=== PATIENT | male | born 1965 | race Caucasian/White ===

== ENCOUNTER 2017-01-18 10:53 | Inpatient (IN) | payer OTHER, MEDICARE ==
[~2017-01-18] VITALS: Ht 180.3 cm; Wt 104.9 kg
--- NOTE | 2017-01-18 11:18 | PD ---
HPI Chief Complaint: Manuel Act Time Seen by Provider: 11:12 Travel History International Travel<30 days: No (unknown) Contact w/Intl Traveler<30days: No (unknown) History of Present Illness HPI 51yo M with PMH of PTSD was brought in as [place] because he has pressured speech and is manic. Pt states he has homicidal and suicidal ideations. Said he has chronic pain but does not know what he takes. Denies any fever, chest pain, sob, n/v, abdominal pain, focal weakness or numbness. Denies any trauma, fall, IVDA. Said he drinks not every day but every other day. PFSH Social History Tobacco Use: No Allergies-Medications (Allergen,Severity, Reaction): Coded Allergies: lithium (Verified Allergy, Severe, Swelling, 01/18/17) shellfish derived (Verified Allergy, Severe, Anaphylaxis, 01/18/17) quetiapine (Verified Adverse Reaction, Severe, Sedation, 01/18/17) Reported Meds & Prescriptions Reported Meds & Active Scripts Active Reported Hydroxyzine HCl 50 Mg Tab 50 Mg PO BID Epipen 2-Dez Inj (Epinephrine) 0.3 Mg/0.3 Ml Pfpen 0.3 Mg IM ONCE PRN Diphenhydramine (Diphenhydramine HCl) 25 Mg Cap 25 Mg PO BID PRN Buspirone (Buspirone HCl) 5 Mg Tab 5 Mg PO BID Review of Systems Except as stated in HPI: all other systems reviewed are Neg Physical Exam Narrative GENERAL: 51yo M not in distress. SKIN: Focused skin assessment warm/dry. HEAD: Atraumatic. Normocephalic. EYES: Pupils equal and round at 3mm bilaterally. EOMI. No scleral icterus. No injection or drainage. ENT: No nasal bleeding or discharge. Mucous membranes pink and moist. NECK: Trachea midline. No JVD. CARDIOVASCULAR: Regular rate and rhythm. No murmur appreciated. RESPIRATORY: No accessory muscle use. Clear to auscultation. Breath sounds equal bilaterally. BACK: No midline thoracic or lumbar spine ttp. GASTROINTESTINAL: Abdomen soft, non-tender, nondistended. MUSCULOSKELETAL: No obvious deformities. No clubbing. No cyanosis. No edema. NEUROLOGICAL: Awake and alert. No obvious cranial nerve deficits. Motor grossly within normal limits. Sensation equal bilaterally. Normal speech. Data Data Last Documented VS Vital Signs Date Time Temp Pulse Resp B/P (MAP) Pulse Ox O2 Delivery O2 Flow Rate FiO2 01/18/17 22:39 55 17 126/67 (86) 96 Room Air 01/18/17 18:15 98.4 Orders Orders Complete Blood Count With Diff (01/18/17 11:12) Basic Metabolic Panel (Bmp) (01/18/17 11:12) Psych Screen (01/18/17 11:12) Drug Screen, Random Urine (01/18/17 11:12) Alcohol (Ethanol) (01/18/17 11:12) Salicylates (Aspirin) (01/18/17 11:12) Tylenol (Acetaminophen) (01/18/17 11:12) Diet Regular Basic (01/18/17 Lunch) Acetaminophen (Tylenol) (01/18/17 17:45) Ibuprofen (Motrin) (01/18/17 21:00) Lorazepam (Ativan) (01/18/17 23:45) Lorazepam Inj (Ativan Inj) (01/18/17 23:45) Hydroxyzine Hcl (Atarax) (01/18/17 23:45) Diphenhydramine (Benadryl) (01/18/17 23:45) Diphenhydramine (Benadryl) (01/18/17 23:45) Diphenhydramine Inj (Benadryl Inj) (01/18/17 23:45) Trazodone (Desyrel) (01/18/17 23:45) Acetaminophen (Tylenol) (01/18/17 23:45) Magnesium Hydroxide Liq (Milk Of Magnesi (01/18/17 23:45) Al-Mag Hy-Si 40-40-4 Mg/Ml Liq (Mag-Al P (01/18/17 23:45) Nicotine 21 Mg Patch.24 Hr (Habitrol 21 (01/19/17 09:00) Remove Old Patch (01/19/17 21:00) Diphenhydramine Inj (Benadryl Inj) (01/18/17 23:45) Admit Order (Ed Use Only) (01/18/17 23:37) Admit To Inpatient Psych (01/18/17 ) Vital Signs (Adult) [id number].Q12H.E (01/18/17 23:37) Activity Oob Ad Bridgett (01/18/17 23:37) Level Of Observation (Psych) (01/18/17 23:37) Diet Regular Basic (01/19/17 Breakfast) Complete Blood Count With Diff (01/19/17 06:00) Basic Metabolic Panel (Bmp) (01/19/17 06:00) Lipid Profile (01/19/17 06:00) Hemoglobin (Hgb) A1c (01/19/17 06:00) Haloperidol (Haldol) (01/18/17 23:38) Labs Laboratory Tests Test 01/18/17 11:30 01/18/17 12:10 White Blood Count 10.9 TH/MM3 Red Blood Count 4.44 MIL/MM3 Hemoglobin 14.1 GM/DL Hematocrit 40.7 % Mean Corpuscular Volume 91.5 FL Mean Corpuscular Hemoglobin 31.9 PG Mean Corpuscular Hemoglobin Concent 34.8 % Red Cell Distribution Width 12.8 % Platelet Count 210 TH/MM3 Mean Platelet Volume 8.9 FL Neutrophils (%) (Auto) 64.8 % Lymphocytes (%) (Auto) 23.8 % Monocytes (%) (Auto) 9.7 % Eosinophils (%) (Auto) 0.9 % Basophils (%) (Auto) 0.8 % Neutrophils # (Auto) 7.1 TH/MM3 Lymphocytes # (Auto) 2.6 TH/MM3 Monocytes # (Auto) 1.1 TH/MM3 Eosinophils # (Auto) 0.1 TH/MM3 Basophils # (Auto) 0.1 TH/MM3 CBC Comment DIFF FINAL Differential Comment Blood Urea Nitrogen 22 MG/DL Creatinine 1.08 MG/DL Random Glucose 102 MG/DL Calcium Level 9.2 MG/DL Sodium Level 138 MEQ/L Potassium Level 4.0 MEQ/L Chloride Level 104 MEQ/L Carbon Dioxide Level 25.7 MEQ/L Anion Gap 8 MEQ/L Estimat Glomerular Filtration Rate 72 ML/MIN Salicylates Level 1.8 MG/DL Acetaminophen Level LESS THAN 2.0 MCG/ML Ethyl Alcohol Level LESS THAN 3 MG/DL Urine Opiates Screen NEG Urine Barbiturates Screen NEG Urine Amphetamines Screen NEG Urine Benzodiazepines Screen NEG Urine Cocaine Screen NEG Urine Cannabinoids Screen POS MDM Medical Decision Making Medical Screen Exam Complete: Yes Emergency Medical Condition: Yes Differential Diagnosis PTSD vs. bipolar disorder with manic episode vs. drug induced psychosis Narrative Course 51yo M with PTSD and possible bipolar disorder here under manuel act for psychosis. Pt has no signs of trauma and answering questions. He does seem to have some pressure speech but directable and does not need any medication right now. Will obtain labs, UA and psych evaluation. Labs reviewed, no leukocytosis. BMP unremarkable. Salicylate, acetaminophen and alcohol level negative. Urine drug screen is positive for cannabinoids. Pt is medically clear for psych evaluation. Diagnosis Primary Impression: PTSD (post-traumatic stress disorder) Juliet Nolasco DO Jan 18, 2017 11:18
[2017-01-18 11:19] VITALS: BP 152/86; PULSE 88; RESP 20; TEMP 98; O2SAT 100
[2017-01-18] MEDS ORDERED: EPIP0.3I IM (11:28)
[2017-01-18] MEDS ORDERED: BUSP5TAB PO (11:28)
[2017-01-18] MEDS ORDERED: DIPH25CA PO (11:28)
[2017-01-18] MEDS ORDERED: HYDR50TA94 PO (11:28)
[2017-01-18 11:47] LABS: AUTOMATED NEUTROPHIL # 7.1 TH/MM3 (1.8-7.7); BASOPHIL # 0.1 TH/MM3 (0-0.2); BASOPHIL % 0.8 % (0.0-2.0); EOSINOPHIL # 0.1 TH/MM3 (0-0.4); EOSINOPHIL % 0.9 % (0.0-4.0); HEMATOCRIT 40.7 % (39.0-51.0); HEMO FLAGS DIFF FINAL; LYMPH % 23.8 % (9.0-44.0); LYMPHOCYTE # 2.6 TH/MM3 (1.0-4.8); MEAN CELL VOLUME 91.5 FL (80.0-100.0); MEAN CORPUSCULAR HEMOGLOBIN 31.9 PG (27.0-34.0); MEAN CORPUSCULAR HGB CONC 34.8 % (32.0-36.0); MONO % 9.7 % (0.0-8.0); NEUT % 64.8 % (16.0-70.0); PLATELET COUNT 210 TH/MM3 (150-450); RED BLOOD COUNT 4.44 MIL/MM3 (4.50-5.90); RED CELL DISTRIBUTION WIDTH 12.8 % (11.6-17.2); WHITE BLOOD COUNT 10.9 TH/MM3 (4.0-11.0)
[2017-01-18 12:10] LABS: ANION GAP 8 MEQ/L (5-15); BICARBONATE 25.7 MEQ/L (21.0-32.0); BLOOD UREA NITROGEN 22 MG/DL (7-18); CHLORIDE 104 MEQ/L (98-107); GLOMERULAR FILTRATION RATE 72 ML/MIN (>89); SODIUM (NA) 138 MEQ/L (136-145)
[2017-01-18 12:16] LABS: ACETAMINOPHEN LESS THAN 2.0 MCG/ML (10.0-30.0); ALCOHOL LESS THAN 3 MG/DL (0-5)
[2017-01-18] MEDS ORDERED: ACETAMINOPHEN 325 MG TAB PO ONE (17:45)
[2017-01-18 18:15] VITALS: BP 159/99; PULSE 75; RESP 20; TEMP 98.4; O2SAT 98
[2017-01-18] MEDS ORDERED: IBUPROFEN 600 MG TAB PO ONE (21:00)
[2017-01-18 22:39] VITALS: BP 126/67; PULSE 55; RESP 17; O2SAT 96
[2017-01-18] MEDS ORDERED: HALOPERIDOL 5 MG TAB PO SCH (23:38)
[2017-01-18] MEDS ORDERED: LORazepam 2 MG/ML VIAL IM PRN (23:45)
[2017-01-18] MEDS ORDERED: traZODone HCL 50 MG TAB PO PRN (23:45)
[2017-01-18] MEDS ORDERED: ALUMINUM/MAGNESIUM/SIMETH 30 ML CUP PO PRN (23:45)
[2017-01-18] MEDS ORDERED: LORazepam 1 MG TAB PO PRN (23:45)
[2017-01-18] MEDS ORDERED: hydrOXYzine HCL 50 MG TAB PO PRN (23:45)
[2017-01-18] MEDS ORDERED: diphenhydrAMINE HCL 50 MG CAP PO PRN (23:45)
[2017-01-18] MEDS ORDERED: ACETAMINOPHEN 325 MG TAB PO PRN (23:45)
[2017-01-18] MEDS ORDERED: diphenhydrAMINE HCL 50 MG CAP - HS PRN PO (23:45)
[2017-01-18] MEDS ORDERED: diphenhydrAMINE HCL 50 MG/ML VIAL IM PRN (23:45)
[2017-01-18] MEDS ORDERED: MAGNESIUM HYDROXIDE SUSP 30 ML CUP PO PRN (23:45)
[2017-01-18] MEDS ORDERED: diphenhydrAMINE HCL 50 MG/ML VIAL - HS PRN IM (23:45)
[2017-01-19 00:57] VITALS: BP 152/87; PULSE 62; RESP 18; TEMP 98.3; O2SAT 96
[2017-01-19 05:55] VITALS: BP 122/75; PULSE 66; RESP 17; TEMP 97.1; O2SAT 96
[2017-01-19 05:59] LABS: AUTOMATED NEUTROPHIL # 3.4 TH/MM3 (1.8-7.7); BASOPHIL % 0.7 % (0.0-2.0); EOSINOPHIL # 0.2 TH/MM3 (0-0.4); EOSINOPHIL % 3.2 % (0.0-4.0); HEMATOCRIT 41.9 % (39.0-51.0); HEMO FLAGS DIFF FINAL; LYMPH % 32.1 % (9.0-44.0); LYMPHOCYTE # 2.1 TH/MM3 (1.0-4.8); MEAN CELL VOLUME 92.1 FL (80.0-100.0); MEAN CORPUSCULAR HEMOGLOBIN 31.8 PG (27.0-34.0); MEAN CORPUSCULAR HGB CONC 34.5 % (32.0-36.0); MONO % 10.6 % (0.0-8.0); NEUT % 53.4 % (16.0-70.0); PLATELET COUNT 168 TH/MM3 (150-450); RED BLOOD COUNT 4.55 MIL/MM3 (4.50-5.90); WHITE BLOOD COUNT 6.4 TH/MM3 (4.0-11.0)
[2017-01-19 06:29] LABS: ANION GAP 5 MEQ/L (5-15); BICARBONATE 29.1 MEQ/L (21.0-32.0); BLOOD UREA NITROGEN 18 MG/DL (7-18); CHLORIDE 105 MEQ/L (98-107); GLOMERULAR FILTRATION RATE 68 ML/MIN (>89); POTASSIUM 4.3 MEQ/L (3.5-5.1); SODIUM (NA) 139 MEQ/L (136-145)
[2017-01-19 06:32] LABS: HDL CHOLESTEROL 48.8 MG/DL (40.0-60.0); LDL CHOLESTEROL 45 MG/DL (0-99)
[2017-01-19] MEDS ORDERED: NICOTINE 21 MG/24 HR PATCH T-DERMAL SCH (09:00)
[2017-01-19] MEDS ORDERED: ACETAMINOPHEN 325 MG TAB PO PRN (10:45)
--- NOTE | 2017-01-19 11:09 | HHI.HP ---
Provisional Diagnosis Admission Date Jan 18, 2017 at 23:39 [place] I. PTSD F 43.10 Certification of Person's Competence To Provide Express and Informed Consent I have personally examined Tigre Wong , a person being served at [facility] on, Jan 19, 2017 10:52. Express and informed consent means consent voluntarily given in writing, by a competent person, after sufficient explanation and disclosure of the subject matter involved to enable the person to make a knowing and willful decision without any element of force, fraud, deceit, duress, or other form of constraint or coercion. This person is 18 years of age or older, is not now known to be incompetent to consent to treatment with a guardian advocate, and does not have a health care surrogate or proxy currently making medical treatment decisions. I have found this person to be one of the following: [[id number]] Competent to provide express and informed consent, as defined above, for voluntary admission to this facility and is competent to provide express and informed consent for treatment. He/she has the consistent capacity to make well reasoned, willful, and knowing decisions concerning his or her medical or mental health treatment. The person fully and consistently understands the purpose of the admission for examination/placement and is fully capable of personally exercising all rights assured under [place] Incompetent to provide express and informed consent to voluntary admission, and this is incompetent to provide express and informed consent to treatment. The person must be transferred to involuntary status and a petition for a guardian advocate filed with the Circuit Court. [] Refusing to provide express and informed consent to voluntary admission but is competent to provide express and informed consent for treatment. The person must be discharged or transferred to involuntary status. Form shall be completed within 24 hours of a person's arrival at the receiving facility and filed in the clinical record of each person: 1. Admitted on a voluntary basis 2. Permitted to provide express and informed consent to his/her own treatment 3. Allowed to transfer from involuntary to voluntary status 4. Prior to permitting a person to consent to his or her own treatment after having been previously found incompetent to consent to treatment. History of Present Illness Capacity: Has Capacity Psych Chief Complaint: complaining of her psychotic symptoms HPI Patient is a 51-year-old white male [employer] , did not see combat the did see significant trauma while in the [employer]. Comes here under Manuel act signed by alex alejandro [facility] HSE MANAGER-BC dated 01/18/17 at 10:09 AM that document reviewed stating exacerbation of PTSD rule out substance-induced psychosis bipolar disorder most recent episode manic with psychotic features. is exhibiting rapid pressured speech states he "is not sleeping or eating" he states "I manic" endorses auditory hallucinations states "God brought him to our clinic today" the states he is "suicidal" and states "yes" regarding thoughts of harming other people states he has a plot to commit suicide but "will not tell anyone" the states he has "easy access to guns, they belong to my son who lives in the home" is depressed and tearful at times is desponded. Patient seen screened in the ED urine toxicology positive for up marijuana. This is patient's first visit with us. At the present time patient sitting quietly in his room nurse Marielos present throughout session. Patient alert oriented white male he is calm and cooperative with us does acknowledge being a visit mental health services through the [place] [facility]. He states he is on disability for his PTSD that he at times continues to suffer from nightmares flashbacks and a version. He made his appointment to state that he did very well for number of years on Valium, but [facility] and placed on BuSpar which he states does not work as well. He also complains of pain in his knee and is requesting pain medication for that. He also states he has racing thoughts is requesting Adderall for that. He states he is a good living situation is a house for bedrooms 3 baths he lives there in a good relationship with his his adult son adult daughter and the daughter's boyfriend. He states he along well with all of them. He denies suicidality homicidality voices or visions with me his speech is of normal rate and intensity. There is no pressure to it. That his goal oriented. Though his impression received that the patient is somewhat drug seeking. Medication she mentioned it appears all those that the [place] clinic is unwilling to give. When I declined to give him either benzodiazepines or opiates or psychostimulants he said then he can get up from his doctor in [place]. At this time I feel patient does not meet Manuel criteria. He is able contracted to no harm, he denies suicidality or voices or visions. He did state he has flashbacks at times. But I feel his main agenda was looking for drugs as mentioned above. When I told him I would like you though she was calm and cooperative. Thus patient will be discharged no Rx by me he may follow-up with the [place] [facility]. Her also mentioned to him that if symptoms became worse I became a restricted himself or others she may return to our emergency department to be screened by our psychiatric screeners. Patient appears willing to do this also be discharged today to family Review of Systems Constitutional: DENIES: Diaphoretic episodes, Fatigue, Fever, Weight gain, Weight loss, Chills, Dizziness, Change in appetite, Night Sweats Endocrine: DENIES: Heat/cold intolerance, Polydipsia, Polyuria, Polyphagia Eyes: DENIES: Blurred vision, Diplopia, Eye inflammation, Eye pain, Vision loss , Photosensitivity, Double Vision Ears, nose, mouth, throat: DENIES: Tinnitus, Hearing loss, Vertigo, Nasal discharge, Oral lesions, Throat pain, Hoarseness, Ear Pain, Running Nose, Epistaxis, Sinus Pain, Toothache, Odynophagia Respiratory: DENIES: Apneas, Cough, Snoring, Wheezing, Hemoptysis, Sputum production, Shortness of breath Cardiovascular: DENIES: Chest pain, Palpitations, Syncope, Dyspnea on Exertion , PND, Lower Extremity Edema, Orthopnea, Claudication Gastrointestinal: DENIES: Abdominal pain, Black stools, Bloody stools, Constipation, Diarrhea, Nausea, Vomiting, Difficulty Swallowing, Anorexia Genitourinary: DENIES: Sexual dysfunction, Urinary frequency, Urinary incontinence, Urgency, Hematuria, Dysuria, Nocturia, Penile Discharge, Testicular Pain, Testicular Swelling Musculoskeletal: COMPLAINS OF: Joint pain, DENIES: Muscle aches, Stiffness, Joint Swelling, Back pain, Neck pain Integumentary: DENIES: Abnormal pigmentation, Nail changes, Pruritus, Rash Hematologic/lymphatic: DENIES: Bruising, Lymphadenopathy Immunologic/allergic: DENIES: Eczema, Urticaria Neurologic: DENIES: Abnormal gait, Headache, Localized weakness, Paresthesias, Seizures, Speech Problems, Tremor, Poor Balance Psychiatric: COMPLAINS OF: Anxiety (mild), Depression (mild), Hallucinations ( denies at this time), Suicidal Ideation (denies at this time), Homicidal Ideation, DENIES: Confusion, Mood changes, Agitation, Delusions Past Psych History Psychological trauma history Patient with his significant trauma in the [employer] Violence risk - others (6 mos) Denies at this time Violence risk - self (6 mos) Denies at this time Substance Abuse History Drugs/Alcohol past 12 months Patient positive for marijuana Past Family Social History Coded Allergies: lithium (Verified Allergy, Severe, Swelling, 01/18/17) shellfish derived (Verified Allergy, Severe, Anaphylaxis, 01/18/17) quetiapine (Verified Adverse Reaction, Severe, Sedation, 01/18/17) Past Medical History PTSD complaints of right knee pain Reported Medications Hydroxyzine HCl (Hydroxyzine HCl) 50 Mg Tab, 50 MG PO BID, TAB 0 Refills 01/18/17 Epinephrine Inj (Epipen 2-Dez Inj) 0.3 Mg/0.3 Ml Pfpen, 0.3 MG IM ONCE Y for ALLERGIC REACTION, #1 PACK 0 Refills 01/18/17 Diphenhydramine (Diphenhydramine) 25 Mg Cap, 25 MG PO BID Y for INSOMNIA, CAP 0 Refills 01/18/17 Buspirone (Buspirone) 5 Mg Tab, 5 MG PO BID for Anxiety, TAB 0 Refills 01/18/17 Current Medications Medications (Trade) Dose Ordered Sig/Stevenson Route Start Time Stop Time Status Last Admin (Ativan) 1 mg Q6H PRN PO 01/18/17 23:45 (Ativan Inj) 1 mg Q6H PRN IM 01/18/17 23:45 (Atarax) 50 mg Q6H PRN PO 01/18/17 23:45 (Benadryl) 50 mg Q6H PRN PO 01/18/17 23:45 01/19/17 00:08 (Benadryl Inj) 50 mg Q6H PRN IM 01/18/17 23:45 (Benadryl) 50 mg HS PRN PO 01/18/17 23:45 (Benadryl Inj) 50 mg HS PRN IM 01/18/17 23:45 (Desyrel) 50 mg HS PRN PO 01/18/17 23:45 (Tylenol) 650 mg Q4H PRN PO 01/18/17 23:45 (Milk Of Magnesia Liq) 30 ml DAILY PRN PO 01/18/17 23:45 (Mag-Al Plus Susp Liq) 30 ml Q6H PRN PO 01/18/17 23:45 (Habitrol 21 Mg Patch.24 Hr) 1 patch DAILY T-DERMAL 01/19/17 09:00 Miscellaneous Information 1 HS T-DERMAL 01/19/17 21:00 (Haldol) 5 mg HS PO 01/18/17 23:38 01/18/17 23:38 Family Psych History Denies Social History Patient living with his 2 adult children and daughter's boyfriend Patient's Strengths (min. 2) Patient verbal able access healthcare Physical Exam Patient medically cleared 3 ED the present time patient sitting quietly in his room he is calm cooperative no acute distress, no respiratory distress, low complicit abdominal pain. Patient moving all 4 extremities without difficulty the complaining of some mild right knee pain no abnormal motor movements noted Vital Signs Vital Signs Date Time Temp Pulse Resp B/P (MAP) Pulse Ox O2 Delivery O2 Flow Rate FiO2 01/19/17 05:55 97.1 66 17 122/75 (91) 96 01/18/17 22:39 Room Air Lab Results Test 01/18/17 11:30 01/18/17 12:10 01/19/17 05:39 White Blood Count 10.9 TH/MM3 6.4 TH/MM3 Red Blood Count 4.44 MIL/MM3 4.55 MIL/MM3 Hemoglobin 14.1 GM/DL 14.4 GM/DL Hematocrit 40.7 % 41.9 % Mean Corpuscular Volume 91.5 FL 92.1 FL Mean Corpuscular Hemoglobin 31.9 PG 31.8 PG Mean Corpuscular Hemoglobin Concent 34.8 % 34.5 % Red Cell Distribution Width 12.8 % 13.0 % Platelet Count 210 TH/MM3 168 TH/MM3 Mean Platelet Volume 8.9 FL 8.5 FL Neutrophils (%) (Auto) 64.8 % 53.4 % Lymphocytes (%) (Auto) 23.8 % 32.1 % Monocytes (%) (Auto) 9.7 % 10.6 % Eosinophils (%) (Auto) 0.9 % 3.2 % Basophils (%) (Auto) 0.8 % 0.7 % Neutrophils # (Auto) 7.1 TH/MM3 3.4 TH/MM3 Lymphocytes # (Auto) 2.6 TH/MM3 2.1 TH/MM3 Monocytes # (Auto) 1.1 TH/MM3 0.7 TH/MM3 Eosinophils # (Auto) 0.1 TH/MM3 0.2 TH/MM3 Basophils # (Auto) 0.1 TH/MM3 0.0 TH/MM3 CBC Comment DIFF FINAL DIFF FINAL Differential Comment Blood Urea Nitrogen 22 MG/DL 18 MG/DL Creatinine 1.08 MG/DL 1.14 MG/DL Random Glucose 102 MG/DL 82 MG/DL Calcium Level 9.2 MG/DL 9.1 MG/DL Sodium Level 138 MEQ/L 139 MEQ/L Potassium Level 4.0 MEQ/L 4.3 MEQ/L Chloride Level 104 MEQ/L 105 MEQ/L Carbon Dioxide Level 25.7 MEQ/L 29.1 MEQ/L Anion Gap 8 MEQ/L 5 MEQ/L Estimat Glomerular Filtration Rate 72 ML/MIN 68 ML/MIN Salicylates Level 1.8 MG/DL Acetaminophen Level LESS THAN 2.0 MCG/ML Ethyl Alcohol Level LESS THAN 3 MG/DL Urine Opiates Screen NEG Urine Barbiturates Screen NEG Urine Amphetamines Screen NEG Urine Benzodiazepines Screen NEG Urine Cocaine Screen NEG Urine Cannabinoids Screen POS Triglycerides Level 113 MG/DL Cholesterol Level 116 MG/DL LDL Cholesterol 45 MG/DL HDL Cholesterol 48.8 MG/DL Cholesterol/HDL Ratio 2.37 RATIO Mental Status Examination Appearance: Appropriate Consciousness: Alert Orientation: x4 Motor Activity: Normal gait Speech: Unremarkable Language: Adequate Fund of Knowledge: Adequate Attention and Concentration: Adequate Memory: Unremarkable Mood: Other (euthymic to mildly dysphoric) Affect: Other (good range and intensity) Thought Process & Associations: Intact Thought Content: Appropriate Hallucination Type: None (though he states history of flashbacks at times nightmares) Delusion Type: None Suicidal Ideation: No (denies) Suicidal Plan: No (denies) Suicidal Intention: No (denies) Homicidal Ideation: No (9) Homicidal Plan: No (denies) Homicidal Intention: No (denies) Insight: Fair Judgment: Adequate Assessment & Plan Problem List: (1) PTSD (post-traumatic stress disorder) ICD Codes: F43.10 - Post-traumatic stress disorder, unspecified Status: Acute Assessment & Plan Estimated LOS: days this time patient does not meet Manuel criteria will lift Manuel act. Patient to be discharged from self. No Rx by me. [facility] [place]. Patient continues to denies suicidality homicidality voices or visions. Patient suggested to return to our psychiatric screeners if symptoms return get worse point feels in danger Discharge Planning To be discharged to his family to follow[facility]up [facility] and tell this week Request HC Surrog/Guard Advoc?: No Man Hidalgo MD Jan 19, 2017 11:09
--- NOTE | 2017-01-19 11:12 | HHI.DS ---
Psychiatry Discharge Summary Inpatient Psychiatric care?: Yes Advance Directive: No Reason Not Provided: patient declined Mental Health AdvanceDirective: No Health Care Proxy: No Admission Admission Date Jan 18, 2017 at 23:39 Admission Diagnosis: (1) PTSD (post-traumatic stress disorder) ICD Code: F43.10 - Post-traumatic stress disorder, unspecified Brief History Patient is a 51-year-old white male [employer] , did not see combat the did see significant trauma while in the [employer]. Comes here under Manuel act signed by alex alejandro [facility] [employer] dated 01/18/17 at 10:09 AM that document reviewed stating exacerbation of PTSD rule out substance-induced psychosis bipolar disorder most recent episode manic with psychotic features. [place] is exhibiting rapid pressured speech states he "is not sleeping or eating" he states "I manic" endorses auditory hallucinations states "God brought him to our clinic today" the states he is "suicidal" and states "yes" regarding thoughts of harming other people states he has a plot to commit suicide but "will not tell anyone" the states he has "easy access to guns, they belong to my son who lives in the home" is depressed and tearful at times is desponded. Patient seen screened in the ED urine toxicology positive for up marijuana. This is patient's first visit with us. At the present time patient sitting quietly in his room nurse Marielos present throughout session. Patient alert oriented white male he is calm and cooperative with us does acknowledge being a [facility]. He states he is on disability for his PTSD that he at times continues to suffer from nightmares flashbacks and a version. He made his appointment to state that he did very well for number of years on Valium, but [facility] and placed on BuSpar which he states does not work as well. He also complains of pain in his knee and is requesting pain medication for that. He also states he has racing thoughts is requesting Adderall for that. He states he is a good living situation is a house for bedrooms 3 baths he lives there in a good relationship with his his adult son adult daughter and the daughter's boyfriend. He states he along well with all of them. He denies suicidality homicidality voices or visions with me his speech is of normal rate and intensity. There is no pressure to it. That his goal oriented. Though his impression received that the patient is somewhat drug seeking. Medication she mentioned it appears all those that the [place] clinic is unwilling to give. When I declined to give him either benzodiazepines or opiates or psychostimulants he said then he can get up from his doctor in [place]. At this time I feel patient does not meet Manuel criteria. He is able contracted to no harm, he denies suicidality or voices or visions. He did state he has flashbacks at times. But I feel his main agenda was looking for drugs as mentioned above. When I told him I would like you though she was calm and cooperative. Thus patient will be discharged no Rx by me he may follow-up with the [place] clinic here in [facility]. Her also mentioned to him that if symptoms became worse I became a restricted himself or others she may return to our emergency department to be screened by our psychiatric screeners. Patient appears willing to do this also be discharged today to family Tobacco Use In Past 30 Days: No Tobacco Past 30 Days Alcohol Use: 2-3 Times Per Week Hospital Course Please see dictation under brief history. Patient does not meet Manuel criteria at this time patient be discharged to himself to follow-up [place] clinic in [facility] this week. May continue on scheduled medications to return to our ED to be screened by our psychiatric screeners if symptoms return Results Blood Pressure 122 / 75 Vital Signs Date Time Temp Pulse Resp B/P (MAP) Pulse Ox O2 Delivery O2 Flow Rate FiO2 01/19/17 05:55 97.1 66 17 122/75 (91) 96 01/18/17 22:39 Room Air Laboratory Tests Test 01/18/17 11:30 01/18/17 12:10 01/19/17 05:39 Red Blood Count 4.44 MIL/MM3 (4.50-5.90) Monocytes (%) (Auto) 9.7 % (0.0-8.0) 10.6 % (0.0-8.0) Monocytes # (Auto) 1.1 TH/MM3 (0-0.9) Blood Urea Nitrogen 22 MG/DL (7-18) Estimat Glomerular Filtration Rate 72 ML/MIN (>89) 68 ML/MIN (>89) Salicylates Level 1.8 MG/DL (2.8-20.0) Acetaminophen Level LESS THAN 2.0 MCG/ML Urine Cannabinoids Screen POS (NEG) Cholesterol Level 116 MG/DL (120-200) Laboratory Results Test 01/19/17 05:39 Cholesterol Level 116 MG/DL (120-200) HDL Cholesterol 48.8 MG/DL (40.0-60.0) LDL Cholesterol 45 MG/DL (0-99) Triglycerides Level 113 MG/DL (42-150) Summary of Procedures None done Pending results at discharge: No Medications # of Antipsychotic meds at D/C: 0 Approp Antipsych med options 1 - Minimum of three failed multiple trials of monotherapy. 2 - Documented plan to taper to monotherapy due to previous use of multiple meds OR cross-taper in progress at D/C. 3 - Documentation of augmentation of Clozapine. 4 - Justification other than those listed in allowable values 1-3, document here : Discharge Discharge Date: Jan 19, 2017 Discharge Diagnosis: (1) PTSD (post-traumatic stress disorder) Diagnosis: Principal ICD Code: F43.10 - Post-traumatic stress disorder, unspecified Status: Acute Pt Condition on Discharge: Stable Discharge Disposition: Discharge Home Discharge Instructions Diet Instructions: As Tolerated, No Restrictions Activities you can perform: Regular-No Restrictions Scheduled Appointment: follow-up [place] outpatient clinic this week Discharge Time > 30 minutes Mental Status Examination Appearance: Appropriate Consciousness: Alert Orientation: x4 Motor Activity: Normal gait Speech: Unremarkable Language: Adequate Fund of Knowledge: Adequate Attention and Concentration: Adequate Memory: Unremarkable Mood: Other (euthymic to mildly dysphoric) Affect: Other (good range and intensity) Thought Process & Associations: Intact Thought Content: Appropriate Hallucination Type: None (though he states history of flashbacks at times nightmares) Delusion Type: None Suicidal Ideation: No (denies) Suicidal Plan: No (denies) Suicidal Intention: No (denies) Homicidal Ideation: No (9) Homicidal Plan: No (denies) Homicidal Intention: No (denies) Insight: Fair Judgment: Adequate Discharge/Advance Care Plan Health Problems: (1) PTSD (post-traumatic stress disorder) Goals to promote your health * To prevent worsening of your condition and complications * To maintain your health at the optimal level Directions to meet your goals Take your medications as prescribed Follow your dietary instruction Follow activity as directed Keep your appointments as scheduled Take your immunizations and boosters as scheduled If your symptoms worsen call your PCP, if no PCP go to Urgent Care Center or Emergency Room For 24/09 questions related to your inpatient stay or results of tests pending at discharge, please contact Dr. Man Hidalgo at Smoking is Dangerous to Your Health. Avoid second hand smoking Man Hidalgo MD Jan 19, 2017 11:12
[2017-01-19] MEDS ORDERED: REMOVE OLD NICOTINE PATCH T-DERMAL SCH (21:00)
[2017-01-20 10:04] LABS: HEMOGLOBIN A1a 1.1 %; HEMOGLOBIN A1b 1.6 %; HEMOGLOBIN Ao 85.8 %; HEMOGLOBIN P3 3.9 %
== END 2017-01-19 13:40 | disposition home or self-care (01) | DRG 882 ==
LOC: NEPD 10:53 → NEDA 23:39 → H260 01-19 00:20
PROVIDERS: ADMIT Psychiatry & Neurology Psychiatry; ATTEND Psychiatry & Neurology Psychiatry
DX: F43.10 Post-traumatic stress disorder, unspecified (principal); R45.850 Homicidal ideations; R45.851 Suicidal ideations; G89.29 Other chronic pain; M25.561 Pain in right knee; Z76.5 Malingerer [conscious simulation]
CPT/HCPCS: 80048; 80061; 80307; 83036; 85025; Q0163